=== PATIENT | male | born 1940 | race Caucasian/White ===

== ENCOUNTER 2019-12-04 14:07 | Emergency (ER) | payer MEDICARE, OTHER, SELFPAY ==
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
[2019-12-04 14:10] VITALS: BP 158/82; PULSE 92; RESP 20; TEMP 37.3; O2SAT 96; BMI 28.0
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
--- NOTE | 2019-12-04 17:53 | PC.NURSE ---
Called to room to reposition patient. Attempted to help patient up. He became upset due to his waittime and would not allow staff to help him up in bed. Patient sitting on edge of bed.
[2019-12-04 18:40] VITALS: BP 168/94; PULSE 82; RESP 16; O2SAT 94
--- NOTE | 2019-12-04 19:00 | PC.NURSE ---
LEFT REGULAR ARM SLING APPLIED
== END 2019-12-04 18:45 | disposition home or self-care (01) ==
PROVIDERS: Emergency Provider Family Medicine; Family Provider Nurse Practitioner; PCP Nurse Practitioner
DX: S42.212A Unspecified displaced fracture of surgical neck of left humerus, initial encounter for closed fracture (principal); S01.81XA Laceration without foreign body of other part of head, initial encounter; S20.219A Contusion of unspecified front wall of thorax, initial encounter; Z87.891 Personal history of nicotine dependence; V89.0XXA Person injured in unspecified motor-vehicle accident, nontraffic, initial encounter
CPT/HCPCS: 12345; 70450; 71045; 71250; 72125; 73030; 73100; 99281; 99283

== ENCOUNTER → 2020-01-21 08:52 | Outpatient (BNVA) | payer MEDICARE, SELFPAY | PROVIDERS: Family Provider Nurse Practitioner; PCP Family Medicine; Visit Provider Nurse Practitioner | DX: E78.5 Hyperlipidemia, unspecified (principal); E13.9 Other specified diabetes mellitus without complications; I10 Essential (primary) hypertension | CPT/HCPCS: 80053; 80061; 83036; 84443 ==

== ENCOUNTER → 2020-04-15 08:38 | Outpatient (BNVA) | payer MEDICARE, SELFPAY | PROVIDERS: Family Provider Nurse Practitioner; PCP Family Medicine; Visit Provider Nurse Practitioner | DX: E03.8 Other specified hypothyroidism (principal); E11.65 Type 2 diabetes mellitus with hyperglycemia; E55.9 Vitamin D deficiency, unspecified | CPT/HCPCS: 80053; 80061; 82306; 83036; 84443 ==

== ENCOUNTER → 2020-06-24 09:00 | Outpatient (BNVA) | payer MEDICARE, SELFPAY | PROVIDERS: Family Provider Nurse Practitioner; PCP Family Medicine; Visit Provider Nurse Practitioner | DX: E11.65 Type 2 diabetes mellitus with hyperglycemia (principal); I10 Essential (primary) hypertension; E78.5 Hyperlipidemia, unspecified; E55.9 Vitamin D deficiency, unspecified; I25.10 Atherosclerotic heart disease of native coronary artery without angina pectoris; E03.8 Other specified hypothyroidism; F41.1 Generalized anxiety disorder; G89.4 Chronic pain syndrome; H61.23 Impacted cerumen, bilateral | CPT/HCPCS: 80053; 83036 ==

== ENCOUNTER → 2020-06-30 11:08 | Outpatient (BNVA) | payer MEDICARE, SELFPAY | PROVIDERS: Family Provider Nurse Practitioner; PCP Family Medicine; Visit Provider Nurse Practitioner | DX: E11.65 Type 2 diabetes mellitus with hyperglycemia (principal) | CPT/HCPCS: 82043 ==

== ENCOUNTER → 2020-10-10 10:21 | Outpatient (BNVA) | payer MEDICARE, SELFPAY | PROVIDERS: Family Provider Nurse Practitioner; PCP Nurse Practitioner; Visit Provider Internal Medicine Critical Care Medicine | DX: Z01.812 Encounter for preprocedural laboratory examination (principal); J96.11 Chronic respiratory failure with hypoxia | CPT/HCPCS: 87635 ==

== ENCOUNTER 2020-10-16 13:14 | Outpatient (CLI) | payer OTHER, SELFPAY ==
--- NOTE | 2020-10-16 13:46 | PFTS_ITS ---
Date of Study:10/16/20 Date of Dictation: MECHANICS: Forced vital capacity (FVC) is mildly reduced. Forced expiratory volume in one second (FEV1) is normal. FEV1/FVC is normal. FLOW VOLUME LOOP: Narrow. LUNG VOLUMES: Total lung capacity (TLC) is reduced. Residual volume (RV) is reduced. DIFFUSING CAPACITY FOR CARBON MONOXIDE: Severely reduced. Has not been corrected for the patient's hemoglobin. INTERPRETATION: The prebronchodilator spirometry is consistent with mild restriction. Lung volumes are consistent with restrictive lung disease. Gas exchange (DLCO) is severely reduced. MTDD
== END 2020-10-16 13:15 | disposition home or self-care (01) ==
LOC: RT 13:15
PROVIDERS: PCP Nurse Practitioner; Visit Provider Internal Medicine Critical Care Medicine
DX: J44.9 Chronic obstructive pulmonary disease, unspecified (principal)
CPT/HCPCS: 94010; 94618; 94726; 94729

== ENCOUNTER → 2021-02-03 09:13 | Outpatient (BNVA) | payer MEDICARE, SELFPAY | PROVIDERS: PCP Nurse Practitioner; Visit Provider Nurse Practitioner | DX: E11.65 Type 2 diabetes mellitus with hyperglycemia (principal); E03.8 Other specified hypothyroidism; I10 Essential (primary) hypertension; E78.5 Hyperlipidemia, unspecified; I25.10 Atherosclerotic heart disease of native coronary artery without angina pectoris; F41.1 Generalized anxiety disorder; J84.10 Pulmonary fibrosis, unspecified; Z72.0 Tobacco use; J44.9 Chronic obstructive pulmonary disease, unspecified; G89.4 Chronic pain syndrome; E55.9 Vitamin D deficiency, unspecified | CPT/HCPCS: 80053; 80061; 83036; 84443; 85025 ==

== ENCOUNTER 2021-04-21 14:55 | Emergency (ER) | payer OTHER, SELFPAY ==
[2021-04-21 14:58] VITALS: BP 129/64; PULSE 70; RESP 12; TEMP 36.7; O2SAT 95; BMI 27.8
[2021-04-21 15:04] VITALS: BP 115/63; PULSE 76; O2SAT 95
--- NOTE | 2021-04-21 15:13 | XRR_ITS ---
PROCEDURE INFORMATION: Exam: XR Chest Exam date and time: 04/21/2021 3:13 PM Age: 80 years old Clinical indication: Pain; Angina pectoris; Additional info: Chest pain TECHNIQUE: Imaging protocol: XR of the chest. Views: 1 view. COMPARISON: CT chest w con* [id number] 01/22/2020 12:57 PM FINDINGS: Lungs: Hyperinflated lungs. Peripheral scarring throughout the lungs again noted and not significantly changed from prior studies. No focal consolidation. Pleural spaces: Unremarkable. No pleural effusion. No pneumothorax. Heart/Mediastinum: Unremarkable. No cardiomegaly. Bones/joints: The visualized osseous structures are intact. XR/XR chest 1V portable [id number] IMPRESSION: Stable exam, no acute findings.
--- NOTE | 2021-04-21 15:13 | ECG_ITS ---
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
[2021-04-21 15:43] LABS: Basophils # 0.1 10^3/uL (0.0-0.1); Basophils % 0.4 %; Eosinophils # 0.3 10^3/uL (0.0-0.8); Eosinophils % 2.9 %; Hematocrit 38.8 % (42.0-52.0); Hemoglobin 12.9 g/dL (11.7-16.6); Lymphocytes # 2.4 10^3/uL (0.8-4.8); Lymphocytes % 21.3 %; Mean Corpuscular HGB Conc 33.2 g/dL (30.0-36.0); Mean Corpuscular Hemoglobin 30.1 pg (28.0-34.0); Mean Corpuscular Volume 90.4 fL (80-94); Mean Platelet Volume 10.2 fL (7.4-10.4); Monocytes # 0.8 10^3/uL (0.2-0.9); Monocytes % 7.1 %; Neutrophils # 7.66 10^3/uL (1.8-7.7); Neutrophils % 67.9 %; Nucleated Red Blood Cells % 0 %; Platelet Count 198 10^3/cmm (130-400); Red Blood Count 4.29 10^6/uL (4.1-5.3); Red Cell Distribution Width 13.9 % (12.1-15.1); White Blood Count 11.3 10^3/uL (4.0-10.0)
[2021-04-21 15:55] VITALS: BP 105/56; PULSE 73; RESP 20; O2SAT 94
--- NOTE | 2021-04-21 16:04 | W.ED.CHESTPA ---
Documented by User: Jett Rider DO 04/23/21 07:11 HPI - Chest Pain General: Chief Complaint: Chest Pain Stated Complaint: CHEST PAIN Time Seen by Provider: 04/21/21 15:13 History of Present Illness: HPI narrative: 80-year-old male presents to the emergency room with complaints of chest pain and shortness of breath near syncopal episode that began shortly after he had eaten at a local restaurant he was on the way home he never made out of the car. He has had other minor episodes where he felt like he was in a pass out but they are never associated with chest pain. EMS gave him 4 aspirin and one sublingual nitro. He states he no longer has any chest pain. He has a history of coronary artery disease previous had angiogram with stenting it was about 3 years ago was done at our facility. He is not currently having any chest pain. He did not have any shortness of breath or radiation of the discomfort in his chest or diaphoresis with that episode. MD complaint: chest pain and chest heaviness Pertinent past history: coronary artery disease Onset (ago): minute(s) Timing of current episode: episodic Onset: during rest Pain location: substernal and left chest Pain radiation: none Severity: moderate Quality: tightness and heaviness Relieving factors: nitroglycerin Exacerbating factors: nothing Associated symptoms: Reports diaphoresis and dyspnea; Deny abdominal pain, fever(s), leg edema, palpitations, sense of impending doom, syncope or vomiting Treatment prior to arrival: aspirin and nitroglycerin Review of Systems Const: Reports: diaphoresis; Denies: fever(s) ENMT: Denies: throat pain, ear or mastoid pain, nasal discharge or nasal congestion Card: Denies: palpitations or syncope Resp: Reports: dyspnea GI: Denies: abdominal pain or vomiting : Denies: flank pain, dysuria, urinary frequency or urinary urgency Skin/Breast: Denies: rash or pruritus PFSH ED PFSH: Medical History Adult onset hypothyroidism CAD (coronary artery disease) Chronic pain syndrome Controlled diabetes mellitus with hyperglycemia, without long-term current use of insulin COPD (chronic obstructive pulmonary disease) Dyslipidemia Generalized anxiety disorder Hypertension Sleep apnea TIA (transient ischemic attack) Tobacco abuse Vitamin D deficiency Surgical History History of appendectomy History of cardiac catheterization with stents History of cholecystectomy History of lower leg fracture Social History Smoking and tobacco status: current every day smoker cigarettes Years cigarettes smoked: 70 [ Other cigarette details: Hx of 3PPD x 10 Year ] Second hand smoke exposure: Yes Smoking risk assessment/counseling performed?: Yes Alcohol intake: never Desire information about alcohol rehabilitation?: No Counseling given: No Desire information about substance/drug rehabilitation?: No Counseling given: No Caregiver/support person: No Lives independently: Yes Household members: spouse Housing: House Marital status: service: Yes branch: [employer] Current occupational status: retired History of recent travel: No Current gender identity: Male Physical Exam Const: COMMON NORMALS: no acute distress GENERAL APPEARANCE: cooperative and comfortable ORIENTATION/CONSCIOUSNESS: Yes awake, Yes oriented to person, Yes oriented to place and Yes oriented to time HENMT: COMMON NORMALS: normocephalic, atraumatic and hearing grossly normal bilaterally HEAD & SCALP: normocephalic and atraumatic Neck/C-Spine: COMMON NORMALS: no JVD Resp: COMMON NORMALS: normal respiratory effort, No retractions, No use of accessory muscles and clear to auscultation bilaterally AUSCULTATION: clear to auscultation bilaterally Cardio: COMMON NORMALS: no JVD, regular rate, regular rhythm and No murmurs present (Cardio) RATE: regular rate RHYTHM: regular rhythm GI: COMMON NORMALS: Soft to palpation and No hepatosplenomegaly present AUSCULTATION: Yes normoactive bowel sounds PALPATION: Yes Soft to palpation, No Tenderness to palpation present (GI), No Guarding due to palpation present (GI) and Yes No hepatosplenomegaly present Extremity: COMMON NORMALS: normal to inspection, capillary refill normal, no clubbing, cyanosis or edema, no calf tenderness and no pedal edema Neuro: SENSORIUM/ORIENTATION: Yes oriented to person, Yes oriented to place and Yes oriented to time Skin: COMMON NORMALS: no rashes or lesions noted GENERAL SKIN EXAM: no rashes or lesions noted Course Vital Signs: Vital signs: Vital Signs Temperature 98.0 F 04/21/21 20:47 Pulse Rate 55 L 04/21/21 20:47 Respiratory Rate 16 08/03/21 20:47 Blood Pressure 132/62 04/21/21 20:47 Pulse Oximetry 98 04/21/21 20:47 MDM - Chest Pain MDM Narrative: Medical decision making narrative: Patient seen initially labs ordered reviewed chart care turned over to Dr. Osborne at change of shift see his note for final diagnosis and disposition. Lab Data: Labs: Lab Results 04/21/21 04/21/21 04/21/21 Range/Units 15:30 15:30 15:30 WBC 11.3 H (4.0-10.0) 10^3/ uL RBC 4.29 (4.1-5.3) 10^6/u L Hgb 12.9 (11.7-16.6) g/dL Hct 38.8 L (42.0-52.0) % MCV 90.4 (80-94) fL MCH 30.1 (28.0-34.0) pg MCHC 33.2 (30.0-36.0) g/dL RDW 13.9 (12.1-15.1) % Plt Count 198 (130-400) 10^3/c mm MPV 10.2 (7.4-10.4) fL Neut % (Auto) 67.9 % Lymph % (Auto) 21.3 % [place] % (Auto) 7.1 % Eos % (Auto) 2.9 % Baso % (Auto) 0.4 % Neut # (Auto) 7.66 (1.8-7.7) 10^3/u L Lymph # (Auto) 2.4 (0.8-4.8) 10^3/u L Valencia # (Auto) 0.8 (0.2-0.9) 10^3/u L Eos # (Auto) 0.3 (0.0-0.8) 10^3/u L Baso # (Auto) 0.1 (0.0-0.1) 10^3/u L Nucleated RBC % (a uto) 0 % Nucleated RBCs # 0.0 /100WBC Sodium 141 (136-145) mmol/L Potassium 4.9 (3.5-5.1) mmol/L Chloride 105 (98-107) mmol/L Carbon Dioxide 25 (22-29) mmol/L Anion Gap 15.9 (5-19) BUN 25 H (8-23) mg/dL Creatinine 1.4 H (0.7-1.2) mg/dL GFR Calculation Not Reportable Glucose 150 H (65-115) mg/dL Calculated Osmolal ity 299 H (285-295) mOsm/k g Calcium 8.6 (8.5-10.5) mg/dL Total Bilirubin 0.2 (0.15-1.2) mg/dL AST 14 (0-40) U/L ALT 12 (0-41) U/L Alkaline Phosphata se 107 (40-130) IU/L Troponin T Baselin e 14 (0-15) ng/L Troponin T 120 Min [place] (0-15) ng/L Delta Troponin T (0-10) ABS# Total Protein 6.2 L (6.6-8.7) g/dL Albumin 3.5 (3.5-5.2) g/dL Globulin 2.7 (1.3-4.6) g/dL 04/21/21 Range/Units 17:44 WBC (4.0-10.0) 10^3/ uL RBC (4.1-5.3) 10^6/u L Hgb (11.7-16.6) g/dL Hct (42.0-52.0) % MCV (80-94) fL MCH (28.0-34.0) pg MCHC (30.0-36.0) g/dL RDW (12.1-15.1) % Plt Count (130-400) 10^3/c mm MPV (7.4-10.4) fL Neut % (Auto) % Lymph % (Auto) % Valencia % (Auto) % Eos % (Auto) % Baso % (Auto) % Neut # (Auto) (1.8-7.7) 10^3/u L Lymph # (Auto) (0.8-4.8) 10^3/u L Valencia # (Auto) (0.2-0.9) 10^3/u L Eos # (Auto) (0.0-0.8) 10^3/u L Baso # (Auto) (0.0-0.1) 10^3/u L Nucleated RBC % (a uto) % Nucleated RBCs # /100WBC Sodium (136-145) mmol/L Potassium (3.5-5.1) mmol/L Chloride (98-107) mmol/L Carbon Dioxide (22-29) mmol/L Anion Gap (5-19) BUN (8-23) mg/dL Creatinine (0.7-1.2) mg/dL GFR Calculation Glucose (65-115) mg/dL Calculated Osmolal ity (285-295) mOsm/k g Calcium (8.5-10.5) mg/dL Total Bilirubin (0.15-1.2) mg/dL AST (0-40) U/L ALT (0-41) U/L Alkaline Phosphata se (40-130) IU/L Troponin T Baselin e (0-15) ng/L Troponin T 120 Min [place] 12.74 (0-15) ng/L Delta Troponin T -1.26 L (0-10) ABS# Total Protein (6.6-8.7) g/dL Albumin (3.5-5.2) g/dL Globulin (1.3-4.6) g/dL Discharge Plan Discharge Patient Disposition: Home Clinical Impression: Chest pain Qualifiers: Chest pain type: unspecified Qualified Code(s): R07.9 - Chest pain, unspecified Condition: Stable Prescriptions: No Action (DME) OneTouch Ultra Blue Test Strip Strip See Rx Instructions .ROUTE .MEDSUPPLY Qty: 100 RF: 3 (DME) lancets [OneTouch UltraSoft Lancets] Misc See Rx Instructions .ROUTE .MEDSUPPLY Qty: 100 RF: 3 isosorbide mononitrate 60 mg tablet extended release 24 hr 60 mg PO QAM RF: 0 glipizide 10 mg tablet 10 mg PO BID Qty: 180 RF: 1 metformin 1,000 mg tablet 1,000 mg PO BID Qty: 180 RF: 1 albuterol sulfate [ProAir HFA] 90 mcg/actuation HFA aerosol inhaler 2 puff inhalation Q6H PRN (Reason: shortness of breath or wheezing) Qty: 25.8 RF: 1 tramadol 50 mg tablet 75 mg PO BID PRN (Reason: pain) Qty: 270 RF: 1 multivitamin with minerals [One-A-Day Maximum Formula] Tablet 1 tab PO QPM RF: 0 Aspir-81 81 mg Tablet,Delayed Release (Dr/Ec) 81 mg PO QPM RF: 0 Levemir FlexTouch U-100 Insuln 100 unit/mL (3 mL) insulin pen 50 unit SUBCUT BEDTIME RF: 0 atorvastatin 80 mg tablet 80 mg PO QPM RF: 0 lisinopril 20 mg tablet 20 mg PO QPM RF: 0 clopidogrel 75 mg tablet 75 mg PO QAM RF: 0 levothyroxine 100 mcg tablet 100 mcg PO QAM RF: 0 metoprolol succinate 25 mg tablet extended release 24 hr 25 mg PO QAM RF: 0 sertraline 50 mg tablet 50 mg PO QAM RF: 0 Chantix 1 mg tablet 1 mg PO BID RF: 0 cholecalciferol (vitamin D3) 1,250 mcg (50,000 unit) tablet 50,000 unit PO Q30D RF: 0 Discharge Orders: Discharge ED (Routine); Ordered 04/21/21 Ordered By: Emily Osborne Referrals: Radha Ocampo, [facility] [Primary Care Provider] - 1-3 days Discharge Diet: Advance as tolerated Discharge Activity: Resume usual activity Patient Instructions: Chest Pain (ED) Coding Level of Care Code ED Auto Seat Cover Installer for Chg Fwd Documented by User: Emily Osborne MD 04/21/21 20:18 HPI - Chest Pain General: Chief Complaint: Chest Pain Stated Complaint: CHEST PAIN Time Seen by Provider: 04/21/21 15:13 [facility] ED PFSH: Medical History Adult onset hypothyroidism CAD (coronary artery disease) Chronic pain syndrome Controlled diabetes mellitus with hyperglycemia, without long-term current use of insulin COPD (chronic obstructive pulmonary disease) Dyslipidemia Generalized anxiety disorder Hypertension Sleep apnea TIA (transient ischemic attack) Tobacco abuse Vitamin D deficiency Surgical History History of appendectomy History of cardiac catheterization with stents History of cholecystectomy History of lower leg fracture Social History Smoking and tobacco status: current every day smoker cigarettes Years cigarettes smoked: 70 [ Other cigarette details: Hx of 3PPD x 10 Year ] Second hand smoke exposure: Yes Smoking risk assessment/counseling performed?: Yes Alcohol intake: never Desire information about alcohol rehabilitation?: No Counseling given: No Desire information about substance/drug rehabilitation?: No Counseling given: No Caregiver/support person: No Lives independently: Yes Household members: spouse Housing: House Marital status: service: Yes branch: [employer] Current occupational status: retired History of recent travel: No Current gender identity: Male Course Vital Signs: Vital signs: Vital Signs Temperature 98.0 F 04/21/21 20:47 Pulse Rate 55 L 04/21/21 20:47 Respiratory Rate 16 04/21/21 20:47 Blood Pressure 132/62 04/21/21 20:47 Pulse Oximetry 98 04/21/21 20:47 MDM - Chest Pain MDM Narrative: Medical decision making narrative: Patient presents here with chest pain that is been resolved here. His initial repeat troponins here are negative. He has no signs of acute coronary syndrome. He is stable for discharge and is to follow-up with PCP and return if worsening. Lab Data: Labs: Lab Results 04/21/21 04/21/21 04/21/21 Range/Units 15:30 15:30 15:30 WBC 11.3 H (4.0-10.0) 10^3/ uL RBC 4.29 (4.1-5.3) 10^6/u L Hgb 12.9 (11.7-16.6) g/dL Hct 38.8 L (42.0-52.0) % MCV 90.4 (80-94) fL MCH 30.1 (28.0-34.0) pg MCHC 33.2 (30.0-36.0) g/dL RDW 13.9 (12.1-15.1) % Plt Count 198 (130-400) 10^3/c mm MPV 10.2 (7.4-10.4) fL Neut % (Auto) 67.9 % Lymph % (Auto) 21.3 % Valencia % (Auto) 7.1 % Eos % (Auto) 2.9 % Baso % (Auto) 0.4 % Neut # (Auto) 7.66 (1.8-7.7) 10^3/u L Lymph # (Auto) 2.4 (0.8-4.8) 10^3/u L Valencia # (Auto) 0.8 (0.2-0.9) 10^3/u L Eos # (Auto) 0.3 (0.0-0.8) 10^3/u L Baso # (Auto) 0.1 (0.0-0.1) 10^3/u L Nucleated RBC % (a uto) 0 % Nucleated RBCs # 0.0 /100WBC Sodium 141 (136-145) mmol/L Potassium 4.9 (3.5-5.1) mmol/L Chloride 105 (98-107) mmol/L Carbon Dioxide 25 (22-29) mmol/L Anion Gap 15.9 (5-19) BUN 25 H (8-23) mg/dL Creatinine 1.4 H (0.7-1.2) mg/dL GFR Calculation Not Reportable Glucose 150 H (65-115) mg/dL Calculated Osmolal ity 299 H (285-295) mOsm/k g Calcium 8.6 (8.5-10.5) mg/dL Total Bilirubin 0.2 (0.15-1.2) mg/dL AST 14 (0-40) U/L ALT 12 (0-41) U/L Alkaline Phosphata se 107 (40-130) IU/L Troponin T Baselin e 14 (0-15) ng/L Troponin T 120 Min [place] (0-15) ng/L Delta Troponin T (0-10) ABS# Total Protein 6.2 L (6.6-8.7) g/dL Albumin 3.5 (3.5-5.2) g/dL Globulin 2.7 (1.3-4.6) g/dL 04/21/21 Range/Units 17:44 WBC (4.0-10.0) 10^3/ uL RBC (4.1-5.3) 10^6/u L Hgb (11.7-16.6) g/dL Hct (42.0-52.0) % MCV (80-94) fL MCH (28.0-34.0) pg MCHC (30.0-36.0) g/dL RDW (12.1-15.1) % Plt Count (130-400) 10^3/c mm MPV (7.4-10.4) fL Neut % (Auto) % Lymph % (Auto) % Valencia % (Auto) % Eos % (Auto) % Baso % (Auto) % Neut # (Auto) (1.8-7.7) 10^3/u L Lymph # (Auto) (0.8-4.8) 10^3/u L Valencia # (Auto) (0.2-0.9) 10^3/u L Eos # (Auto) (0.0-0.8) 10^3/u L Baso # (Auto) (0.0-0.1) 10^3/u L Nucleated RBC % (a uto) % Nucleated RBCs # /100WBC Sodium (136-145) mmol/L Potassium (3.5-5.1) mmol/L Chloride (98-107) mmol/L Carbon Dioxide (22-29) mmol/L Anion Gap (5-19) BUN (8-23) mg/dL Creatinine (0.7-1.2) mg/dL GFR Calculation Glucose (65-115) mg/dL Calculated Osmolal ity (285-295) mOsm/k g Calcium (8.5-10.5) mg/dL Total Bilirubin (0.15-1.2) mg/dL AST (0-40) U/L ALT (0-41) U/L Alkaline Phosphata se (40-130) IU/L Troponin T Baselin e (0-15) ng/L Troponin T 120 Min [place] 12.74 (0-15) ng/L Delta Troponin T -1.26 L (0-10) ABS# Total Protein (6.6-8.7) g/dL Albumin (3.5-5.2) g/dL Globulin (1.3-4.6) g/dL Imaging Data^: CXR: Attestation: I personally reviewed and interpreted this imaging study as follows: Radiologist's impression: [address] [address] XRay Report Signed Patient: Ervin Sandoval Unit #: [id number] : 1940 Age/Sex: 80 / M ADM Date: 04/21/21 Loc: ER Room/Bed: Attending Dr: Ordering Provider/Ordering MD: Jett Rider DO Date of Service: 04/21/21 Procedure(s): XR chest 1V portable [id number] Accession Number(s): [id number] Report Number: [id number] PROCEDURE INFORMATION: Exam: XR Chest Exam date and time: 04/21/2021 3:13 PM Age: 80 years old Clinical indication: Pain; Angina pectoris; Additional info: Chest pain TECHNIQUE: Imaging protocol: XR of the chest. Views: 1 view. COMPARISON: CT chest w con* [id number] 01/22/2020 12:57 PM FINDINGS: Lungs: Hyperinflated lungs. Peripheral scarring throughout the lungs again noted and not significantly changed from prior studies. No focal consolidation. Pleural spaces: Unremarkable. No pleural effusion. No pneumothorax. Heart/Mediastinum: Unremarkable. No cardiomegaly. Bones/joints: The visualized osseous structures are intact. XR/XR chest 1V portable [id number] IMPRESSION: Stable exam, no acute findings. Dictated By: Isaac Gordillo DO Signed By: Isaac Gordillo DO Signed Date/Time: 04/21/211550 DD/ 155 Discharge Plan Discharge Patient Disposition: Home Clinical Impression: Chest pain Qualifiers: Chest pain type: unspecified Qualified Code(s): R07.9 - Chest pain, unspecified Condition: Stable Prescriptions: No Action (DME) OneTouch Ultra Blue Test Strip Strip See Rx Instructions .ROUTE .MEDSUPPLY Qty: 100 RF: 3 (DME) lancets [OneTouch UltraSoft Lancets] Misc See Rx Instructions .ROUTE .MEDSUPPLY Qty: 100 RF: 3 isosorbide mononitrate 60 mg tablet extended release 24 hr 60 mg PO QAM RF: 0 glipizide 10 mg tablet 10 mg PO BID Qty: 180 RF: 1 metformin 1,000 mg tablet 1,000 mg PO BID Qty: 180 RF: 1 albuterol sulfate [ProAir HFA] 90 mcg/actuation HFA aerosol inhaler 2 puff inhalation Q6H PRN (Reason: shortness of breath or wheezing) Qty: 25.8 RF: 1 tramadol 50 mg tablet 75 mg PO BID PRN (Reason: pain) Qty: 270 RF: 1 multivitamin with minerals [One-A-Day Maximum Formula] Tablet 1 tab PO QPM RF: 0 Aspir-81 81 mg Tablet,Delayed Release (Dr/Ec) 81 mg PO QPM RF: 0 Levemir FlexTouch U-100 Insuln 100 unit/mL (3 mL) insulin pen 50 unit SUBCUT BEDTIME RF: 0 atorvastatin 80 mg tablet 80 mg PO QPM RF: 0 lisinopril 20 mg tablet 20 mg PO QPM RF: 0 clopidogrel 75 mg tablet 75 mg PO QAM RF: 0 levothyroxine 100 mcg tablet 100 mcg PO QAM RF: 0 metoprolol succinate 25 mg tablet extended release 24 hr 25 mg PO QAM RF: 0 sertraline 50 mg tablet 50 mg PO QAM RF: 0 Chantix 1 mg tablet 1 mg PO BID RF: 0 cholecalciferol (vitamin D3) 1,250 mcg (50,000 unit) tablet 50,000 unit PO Q30D RF: 0 Discharge Orders: Discharge ED (Routine); Ordered 04/21/21 Ordered By: Emily Osborne Referrals: Radha Ocampo FNP-C [Primary Care Provider] - 1-3 days Discharge Diet: Advance as tolerated Discharge Activity: Resume usual activity Patient Instructions: Chest Pain (ED) Coding Level of Care Code ED Auto Seat Cover Installer for Bal [place]
[2021-04-21 16:07] LABS: Alanine Aminotransferase 12 U/L (0-41); Albumin Level 3.5 g/dL (3.5-5.2); Alkaline Phosphatase 107 IU/L (40-130); Anion Gap 15.9 (5-19); Aspartate Amino Transferase 14 U/L (0-40); Blood Urea Nitrogen 25 mg/dL (8-23); Calcium 8.6 mg/dL (8.5-10.5); Carbon Dioxide 25 mmol/L (22-29); Chloride 105 mmol/L (98-107); Globulin 2.7 g/dL (1.3-4.6); Glucose 150 mg/dL (65-115); Osmolality Calculated 299 mOsm/kg (285-295); Potassium 4.9 mmol/L (3.5-5.1); Sodium 141 mmol/L (136-145); Total Bilirubin 0.2 mg/dL (0.15-1.2); Total Protein 6.2 g/dL (6.6-8.7)
[2021-04-21 16:18] LABS: Troponin(5th) Baseline 14 ng/L (0-15)
[2021-04-21 17:05] VITALS: BP 128/69; PULSE 67; RESP 19; O2SAT 94
--- NOTE | 2021-04-21 17:13 | ECG_ITS ---
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: : 1940 Requested By: Jett Bowling Order Number: [id number] Reading MD: ANIKA MARLEY Measurements Intervals [place] Rate: 73 P: WA: QRS: -28 QRSD: 95 T: 52 QT: 372 QTc: 411 Interpretive Statements SUPRAVENTRICULAR RHYTHM BORDERLINE LEFT AXIS DEVIATION [QRS AXIS < -20] Compared to ECG 03/16/2017 17:58:17 Supraventricular rhythm now present Sinus rhythm no longer present Electronically Signed On 04-21-2021 22:33:19 CDT by ANIKA MARLEY [id number]
[2021-04-21 18:00] VITALS: BP 119/64; PULSE 62; O2SAT 93
[2021-04-21 18:41] LABS: Troponin 5 2HR 12.74 ng/L (0-15)
[2021-04-21 18:45] LABS: Troponin 5 2HR Delta -1.26 ABS# (0-10)
--- NOTE | 2021-04-21 19:22 | PC.NURSE ---
Report from [place]
--- NOTE | 2021-04-21 19:35 | PC.NURSE ---
Pt refused pain and nausea meds. notified.
[2021-04-21 20:47] VITALS: BP 132/62; PULSE 55; RESP 16; TEMP 36.7; O2SAT 98
== END 2021-04-21 20:49 | disposition home or self-care (01) ==
PROVIDERS: Family Medicine; Emergency Provider Emergency Medicine; PCP Nurse Practitioner
DX: R07.9 Chest pain, unspecified (principal); Z79.02 Long term (current) use of antithrombotics/antiplatelets; Z79.82 Long term (current) use of aspirin; Z79.4 Long term (current) use of insulin; I25.10 Atherosclerotic heart disease of native coronary artery without angina pectoris; E11.9 Type 2 diabetes mellitus without complications; J44.9 Chronic obstructive pulmonary disease, unspecified; E78.5 Hyperlipidemia, unspecified; I10 Essential (primary) hypertension; Z86.73 Personal history of transient ischemic attack (TIA), and cerebral infarction without residual deficits; F17.210 Nicotine dependence, cigarettes, uncomplicated
CPT/HCPCS: 71045; 80053; 84484; 85025; 93005; 99283; J2270; J2405

== ENCOUNTER → 2021-06-23 10:15 | Outpatient (BNVA) | payer OTHER, SELFPAY | PROVIDERS: PCP Nurse Practitioner; Visit Provider Nurse Practitioner | DX: E11.65 Type 2 diabetes mellitus with hyperglycemia (principal); E03.8 Other specified hypothyroidism; G45.9 Transient cerebral ischemic attack, unspecified; I10 Essential (primary) hypertension; J84.10 Pulmonary fibrosis, unspecified; E55.9 Vitamin D deficiency, unspecified; I25.10 Atherosclerotic heart disease of native coronary artery without angina pectoris; F41.1 Generalized anxiety disorder; G89.4 Chronic pain syndrome; Z79.4 Long term (current) use of insulin | CPT/HCPCS: 80053; 80061; 82043; 83036; 84443 ==

== ENCOUNTER 2022-01-06 06:00 | Outpatient (RCR) | payer OTHER, SELFPAY | END 2022-01-16 23:59 | disposition home or self-care (01) | LOC: TPT 06:00 | PROVIDERS: PCP Nurse Practitioner; Referring Provider Family Medicine; Visit Provider Family Medicine | DX: M54.89 Other dorsalgia (principal) | CPT/HCPCS: 97110; 97163 ==

== ENCOUNTER → 2022-01-15 08:02 | Outpatient (BNVA) | payer MEDICARE, SELFPAY | PROVIDERS: PCP Nurse Practitioner; Visit Provider Nurse Practitioner | DX: E11.65 Type 2 diabetes mellitus with hyperglycemia (principal); Z79.4 Long term (current) use of insulin; G45.9 Transient cerebral ischemic attack, unspecified; I25.10 Atherosclerotic heart disease of native coronary artery without angina pectoris; E55.9 Vitamin D deficiency, unspecified; I10 Essential (primary) hypertension; E03.8 Other specified hypothyroidism; F41.1 Generalized anxiety disorder; G89.4 Chronic pain syndrome | CPT/HCPCS: 80053; 80061; 81000; 82043; 82306; 83036; 84443; 85025 ==

== ENCOUNTER → 2022-01-28 14:40 | Outpatient (BNVA) | payer OTHER, SELFPAY | PROVIDERS: PCP Nurse Practitioner; Visit Provider Internal Medicine | DX: I25.10 Atherosclerotic heart disease of native coronary artery without angina pectoris (principal); I10 Essential (primary) hypertension; E11.65 Type 2 diabetes mellitus with hyperglycemia; E78.5 Hyperlipidemia, unspecified; G47.30 Sleep apnea, unspecified; J44.9 Chronic obstructive pulmonary disease, unspecified; F17.210 Nicotine dependence, cigarettes, uncomplicated; Z79.84 Long term (current) use of oral hypoglycemic drugs; Z79.4 Long term (current) use of insulin | CPT/HCPCS: 99213; 99214 ==

== ENCOUNTER 2022-02-17 06:00 | Outpatient (RCR) | payer OTHER, SELFPAY | END 2022-03-02 23:59 | disposition home or self-care (01) | LOC: TPT 06:00 | PROVIDERS: PCP Nurse Practitioner; Referring Provider Family Medicine; Visit Provider Family Medicine | DX: M54.59 Other low back pain (principal) | CPT/HCPCS: 97110; 97164 ==

== ENCOUNTER → 2022-04-13 14:27 | Outpatient (BNVA) | payer MEDICARE, SELFPAY | PROVIDERS: PCP Nurse Practitioner; Visit Provider Nurse Practitioner | DX: E11.65 Type 2 diabetes mellitus with hyperglycemia (principal); Z79.4 Long term (current) use of insulin; E55.9 Vitamin D deficiency, unspecified; I10 Essential (primary) hypertension; E03.8 Other specified hypothyroidism | CPT/HCPCS: 80053; 80061; 82306; 82607; 83036; 84443; 85025 ==

== ENCOUNTER → 2022-06-07 11:41 | Outpatient (BNVA) | payer MEDICARE, SELFPAY | PROVIDERS: PCP Nurse Practitioner; Visit Provider Nurse Practitioner Family | DX: R10.9 Unspecified abdominal pain (principal); K59.00 Constipation, unspecified; R19.7 Diarrhea, unspecified; Z20.822 Contact with and (suspected) exposure to COVID-19 | CPT/HCPCS: 74018; 87426 ==

== ENCOUNTER 2022-06-11 22:20 | Observation (INO) | payer MEDICARE, OTHER, SELFPAY ==
--- NOTE | 2022-06-11 22:21 | XRR_ITS ---
PROCEDURE INFORMATION: Exam: XR Chest Exam date and time: 06/11/2022 11:22 PM Age: 81 years old Clinical indication: Chest pressure; Prior surgery; Surgery type: Gb. Cardiac stents; Patient HX: C/O chest pain. History of mi. ; Additional info: SOB TECHNIQUE: Imaging protocol: Radiologic exam of the chest. Views: 1 view. COMPARISON: CR XR chest 1V portable [id number] 04/21/2021 3:13 PM FINDINGS: Lungs: Bilateral diffuse largely peripheral interstitial fibrotic changes similar to prior exam with left peripheral to lower lobe suspected pleuroparenchymal scarring. Pleural spaces: Unremarkable. No pleural effusion. No pneumothorax. Heart/Mediastinum: Unremarkable. No cardiomegaly. Bones/joints: Unremarkable. XR/XR chest 1V portable [id number] IMPRESSION: Bilateral diffuse largely peripheral interstitial fibrotic changes similar to prior exam with left peripheral to lower lobe suspected pleuroparenchymal scarring.
[2022-06-11 22:28] VITALS: BP 148/81; PULSE 91; RESP 18; TEMP 36.9; O2SAT 93; BMI 28.2
--- NOTE | 2022-06-11 22:36 | ECG_ITS ---
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 Measurements Intervals [place] Rate: 68 P: 68 WA: 206 QRS: 7 QRSD: 98 T: 45 QT: 381 QTc: 405 Interpretive Statements SINUS RHYTHM SEPTAL MYOCARDIAL INFARCTION , PROBABLY OLD [40+ ms Q WAVE IN V1/V2] Compared to ECG 06/11/2022 22:40:14 Myocardial infarct finding now present Electronically Signed On 06-12-2022 18:10:51 CDT by Elroy Ashford M.D. [id number]
--- NOTE | 2022-06-11 22:57 | W.ED.CHESTPA ---
HPI - Chest Pain General: Chief Complaint: Chest Pain Stated Complaint: cp, sob Time Seen by Provider: 06/11/22 22:22 Source: patient Mode of arrival: ambulatory Limitations: no limitations History of Present Illness: 81-year-old male has extensive cardiac disease states that 2 days ago he is having some reflux and burning pain in his abdomen he states this moved to his chest and having some burning sensation in his chest today denies any shortness of breath states it radiates to his back at times states pain currently is a 5 out of 10. Denies any fevers denies any vomiting or diarrhea. Associated symptoms: Reports abdominal pain and dyspnea; Deny fever(s) Review of Systems Const: Denies: fever(s), chills, body aches or change in appetite Eyes: Denies: blurry vision or eye discomfort ENMT: Denies: throat pain or dental pain Card: Reports: chest pain Resp: Reports: dyspnea GI: Reports: abdominal pain : Denies: dysuria Musc: Denies: neck pain or back pain Skin/Breast: Denies: rash Neuro: Denies: headache(s) Psych: Denies: depression Dustin/Lymph: Denies: easy bruising All/Imm: Denies: urticaria PFSH ED PFSH: Medical History Adult onset hypothyroidism CAD (coronary artery disease) Chronic pain syndrome COPD (chronic obstructive pulmonary disease) 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 Diabetes mellitus with hyperglycemia, with long-term current use of insulin Dyslipidemia Generalized anxiety disorder Hypertension Sleep apnea TIA (transient ischemic attack) Tobacco abuse Vitamin D deficiency Surgical History History of appendectomy History of cardiac catheterization with stents History of cholecystectomy History of lower leg fracture Social History Smoking and tobacco status: current every day smoker cigarettes Years cigarettes smoked: 70 [ Other cigarette details: Hx of 3PPD x 10 Year] Second hand smoke exposure: Yes Smoking risk assessment/counseling performed?: Yes Alcohol intake: never Desire information about alcohol rehabilitation?: No Counseling given: No Desire information about substance/drug rehabilitation?: No Counseling given: No Caregiver/support person: No Lives independently: Yes Household members: spouse Housing: House Marital status: service: Yes branch: [employer] Current occupational status: retired History of recent travel: No Current gender identity: Male Physical Exam Const: COMMON NORMALS: no acute distress, patient oriented x3 and healthy appearing HENMT: COMMON NORMALS: normocephalic and atraumatic HEAD & SCALP: normocephalic and atraumatic Eye: COMMON NORMALS: Equal, round and reactive pupils present and EOMs intact bilaterally PUPIL: Yes Equal, round and reactive pupils present Neck/C-Spine: COMMON NORMALS: full ROM and supple Chest: COMMONS NORMALS: normal inspection of the chest and normal palpation of entire chest wall Resp: COMMON NORMALS: normal respiratory effort, No retractions, No use of accessory muscles and clear to auscultation bilaterally AUSCULTATION: clear to auscultation bilaterally Cardio: COMMON NORMALS: regular rate, regular rhythm and No murmurs present (Cardio) RATE: regular rate RHYTHM: regular rhythm GI: COMMON NORMALS: Normal to inspection, nondistended, normoactive bowel sounds present, Soft to palpation, non-tender and no masses PALPATION: Yes Soft to palpation Extremity: COMMON NORMALS: normal to inspection and full ROM Neuro: COMMON NORMALS: patient oriented x3, moves all extremities and no focal motor deficits Psych: COMMON NORMALS: mental status grossly normal, Normal thought process present and cooperative THOUGHT PROCESS: Normal thought process present Skin: COMMON NORMALS: no rashes or lesions noted and no wounds GENERAL SKIN EXAM: no rashes or lesions noted Course Vital Signs: Vital signs: Vital Signs Temperature 98.3 F 06/12/22 01:00 Pulse Rate 75 06/12/22 01:00 Respiratory Rate 23 H 06/12/22 01:00 Blood Pressure 116/82 06/12/22 01:00 Pulse Oximetry 95 06/12/22 01:00 Oxygen Delivery Me thod 06/12/22 01:00 MDM - Chest Pain Medical Decision Making Patient presents with upper abdominal pain normal chest pain he does have an elevated lipase CT scan did show some inflammation likely from a pancreatitis spoke to hospitalist and will admit at this time. Lab Data : 06/11/22 23:00 06/11/22 23:00 Radiology Impressions Chest X-Ray 06/11/22 22:21 IMPRESSION: Bilateral diffuse largely peripheral interstitial fibrotic changes similar to prior exam with left peripheral to lower lobe suspected pleuroparenchymal scarring. Abdomen/Pelvis CT 06/12/22 00:29 IMPRESSION: 1. Suspected minimal edema about the transverse duodenum, series 3, image 40, with prominent fluid in the small bowel may reflect a duodenitis and enteritis. 2. Coronary artery atherosclerotic calcifications. 3. Emphysematous changes. 4. Cholecystectomy. 5. Several calcified punctate nonobstructing renal calyceal stones. 6. Diverticulosis without diverticulitis. 7. Fusiform infrarenal abdominal aortic aneurysm measuring 3.2 cm without findings of rupture. Laboratory Results WBC 11.0 10^3/uL (4.0-10.0) H 06/11/22 23:00 RBC 4.32 10^6/uL (4.1-5.3) 06/11/22 23:00 Hgb 13.3 g/dL (11.7-16.6) 06/11/22 23:00 Hct 39.4 % (42.0-52.0) L 06/11/22 23:00 MCV 91.2 fl (80-94) 06/11/22 23:00 MCH 30.8 pg (28.0-34.0) 06/11/22 23:00 MCHC 33.8 g/dL (30.0-36.0) 06/11/22 23:00 RDW 13.5 % (12.1-15.1) 06/11/22 23:00 Plt Count 207 10^3/cmm (130-400) 06/11/22 23:00 MPV 10.4 fL (7.4-10.4) 06/11/22 23:00 Neut % (Auto) 67.9 % 06/11/22 23:00 Lymph % (Auto) 22.4 % 06/11/22 23:00 [place] % (Auto) 6.6 % 06/11/22 23:00 Eos % (Auto) 2.2 % 06/11/22 23:00 Baso % (Auto) 0.5 % 06/11/22 23:00 Neut # (Auto) 7.47 10^3/uL (1.8-7.7) 06/11/22 23:00 Lymph # (Auto) 2.5 10^3/uL (0.8-4.8) 06/11/22 23:00 [place] # (Auto) 0.7 10^3/uL (0.2-0.9) 06/11/22 23:00 Eos # (Auto) 0.2 10^3/uL (0.0-0.8) 06/11/22 23:00 Baso # (Auto) 0.1 10^3/uL (0.0-0.1) 06/11/22 23:00 Nucleated RBC % (auto) 0 % 06/11/22 23:00 Nucleated RBCs # 0.0 /100WBC 06/11/22 23:00 PT 13.00 SECONDS (12.1-14.9) 06/11/22 23:00 INR 0.95 (0.8-1.2) 06/11/22 23:00 Sodium 138 mmol/L (136-145) 06/11/22 23:00 Potassium 4.6 mmol/L (3.5-5.1) 06/11/22 23:00 Chloride 101 mmol/L (98-107) 06/11/22 23:00 Carbon Dioxide 27 mmol/L (22-29) 06/11/22 23:00 Anion Gap 14.6 (5-19) 06/11/22 23:00 BUN 33 mg/dL (8-23) H 06/11/22 23:00 Creatinine 1.2 mg/dL (0.7-1.2) 06/11/22 23:00 GFR Calculation Not Reportable 06/11/22 23:00 Glucose 259 mg/dL (65-115) H 06/11/22 23:00 Calculated Osmolality 302 mOsm/kg (285-295) H 06/11/22 23:00 Calcium 9.4 mg/dL (8.5-10.5) 06/11/22 23:00 Total Bilirubin 0.3 mg/dL (0.15-1.2) 06/11/22 23:00 AST 10 U/L (0-40) 06/11/22 23:00 ALT 9 U/L (0-41) 06/11/22 23:00 Alkaline Phosphatase 125 U/L (40-130) 06/11/22 23:00 Troponin T Baseline 13 ng/L (0-15) 06/11/22 23:00 NT-Pro-B Natriuret Pep 109 pg/mL (0-450) 06/11/22 23:00 Total Protein 7.4 g/dL (6.6-8.7) 06/11/22 23:00 Albumin 3.9 g/dL (3.5-5.2) 06/11/22 23:00 Globulin 3.5 g/dL (1.3-4.6) 06/11/22 23:00 Lipase 600 U/L (13-60) H 06/11/22 23:00 EKG Data EKG 1: I personally reviewed and interpreted this EKG as follows: EKG interpretation date: 06/11/22 EKG interpretation time: 22:40 Interpretation: nsr hr [address] or t wave abnormalities qrs 93 qtc 392 EKG 2: I personally reviewed and interpreted this EKG as follows: EKG interpretation date: 06/12/22 EKG interpretation time: 00:36 Interpretation: nsr hr [address] or t wave abnormalities qrs 98 qtc 397 Discharge Plan Discharge Patient Disposition: Admitted As Inpatient Clinical Impression: Acute pancreatitis Condition: Stable Prescriptions: No Action (DME) lancets [OneTouch UltraSoft Lancets] Misc See Rx Instructions .ROUTE .MEDSUPPLY Qty: 100 3RF Rx Instructions: daily multivitamin with minerals [One-A-Day Maximum Formula] Tablet 1 tab PO QPM cholecalciferol (vitamin D3) 1,250 mcg (50,000 unit) tablet 50,000 unit PO .monthly Qty: 3 1RF Rx Instructions: TAKES THE FIRST TUESDAY OF EACH MONTH tramadol 50 mg tablet 75 mg PO BID PRN (Reason: pain) Qty: 270 1RF (DME) OneTouch Ultra Blue Test Strip Strip See Rx Instructions .ROUTE .MEDSUPPLY Qty: 100 3RF Rx Instructions: daily (DME) blood-glucose meter [OneTouch Ultra2 Meter] Kit See Rx Instructions .Route Qty: 1 0RF Rx Instructions: use daily (DME) lancets [OneTouch Delica Plus Lancet] 33 gauge misc See Rx Instructions .Route Qty: 100 3RF Rx Instructions: use 1 day Levemir FlexTouch U-100 Insuln 100 unit/mL (3 mL) insulin pen 55 unit SUBCUT BEDTIME Qty: 15 2RF albuterol sulfate [ProAir HFA] 90 mcg/actuation HFA aerosol inhaler 2 puff inhalation Q6H PRN (Reason: shortness of breath or wheezing) Qty: 25.8 0RF lisinopril 20 mg tablet 20 mg PO QPM Qty: 90 1RF Rx Instructions: blood pressure levothyroxine 100 mcg tablet 100 mcg PO QAM Qty: 90 1RF glipizide 10 mg tablet 10 mg PO BID Qty: 180 1RF Rx Instructions: for blood sugar sertraline 50 mg tablet 50 mg PO QAM Qty: 90 1RF Rx Instructions: moods metoprolol succinate 25 mg tablet extended release 24 hr 25 mg PO QAM Qty: 90 1RF Rx Instructions: heart clopidogrel 75 mg tablet 75 mg PO QAM Qty: 90 1RF metformin 1,000 mg tablet 1,000 mg PO BID Qty: 180 1RF Rx Instructions: blood sugar atorvastatin 80 mg tablet 80 mg PO QPM Qty: 90 1RF Rx Instructions: for cholesterol isosorbide mononitrate 60 mg tablet extended release 24 hr 60 mg PO QAM Qty: 90 1RF Rx Instructions: for heart Aspir-81 81 mg Tablet,Delayed Release (Dr/Ec) 81 mg PO QPM Referrals: Radha Ocampo, REFLESHER-C [Primary Care Provider] - Coding Level of Care Code ED Health Education Coordinator for Chg Fwd Exam Comprehensive
[2022-06-11] MEDS: lidocaine 2% viscous 15 ML, aluminum-mag hydrox-simethicon 30 ML, sucralfate oral liq 1 GM PO (23:16)
[2022-06-11 23:31] LABS: Basophils # 0.1 10^3/uL (0.0-0.1); Basophils % 0.5 %; Eosinophils # 0.2 10^3/uL (0.0-0.8); Eosinophils % 2.2 %; Hematocrit 39.4 % (42.0-52.0); Hemoglobin 13.3 g/dL (11.7-16.6); Lymphocytes # 2.5 10^3/uL (0.8-4.8); Lymphocytes % 22.4 %; Mean Corpuscular HGB Conc 33.8 g/dL (30.0-36.0); Mean Corpuscular Hemoglobin 30.8 pg (28.0-34.0); Mean Corpuscular Volume 91.2 fl (80-94); Mean Platelet Volume 10.4 fL (7.4-10.4); Monocytes # 0.7 10^3/uL (0.2-0.9); Monocytes % 6.6 %; Neutrophils # 7.47 10^3/uL (1.8-7.7); Neutrophils % 67.9 %; Nucleated Red Blood Cells % 0 %; Platelet Count 207 10^3/cmm (130-400); Red Blood Count 4.32 10^6/uL (4.1-5.3); Red Cell Distribution Width 13.5 % (12.1-15.1)
[2022-06-11 23:42] LABS: INR 0.95 (0.8-1.2)
[2022-06-12] VITALS (10 sets, daily range): BP systolic 116–179; BP diastolic 55–101; PULSE 66–87; RESP 16–26; TEMP 36.4–37.2; O2SAT 92–95
[2022-06-12 00:08] LABS: Troponin(5th) Baseline 13 ng/L (0-15)
[2022-06-12 00:17] LABS: Alanine Aminotransferase 9 U/L (0-41); Albumin Level 3.9 g/dL (3.5-5.2); Alkaline Phosphatase 125 U/L (40-130); Anion Gap 14.6 (5-19); Aspartate Amino Transferase 10 U/L (0-40); Blood Urea Nitrogen 33 mg/dL (8-23); Calcium 9.4 mg/dL (8.5-10.5); Carbon Dioxide 27 mmol/L (22-29); Chloride 101 mmol/L (98-107); Globulin 3.5 g/dL (1.3-4.6); Glucose 259 mg/dL (65-115); NT Pro B Type Natriuretic Pept 109 pg/mL (0-450); Osmolality Calculated 302 mOsm/kg (285-295); Potassium 4.6 mmol/L (3.5-5.1); Sodium 138 mmol/L (136-145); Total Bilirubin 0.3 mg/dL (0.15-1.2); Total Protein 7.4 g/dL (6.6-8.7)
--- NOTE | 2022-06-12 00:21 | ECG_ITS ---
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 Measurements Intervals [place] Rate: 74 P: 60 [place]: 202 QRS: -7 QRSD: 93 T: 64 QT: 365 QTc: 406 Interpretive Statements SINUS RHYTHM Compared to ECG 04/21/2021 17:28:42 No significant changes Electronically Signed On 06-12-2022 18:14:58 CDT by Elroy Ashford M.D. [id number]
[2022-06-12 00:24] LABS: Lipase 600 U/L (13-60)
--- NOTE | 2022-06-12 00:29 | CTR_ITS ---
PROCEDURE INFORMATION: Exam: CT Abdomen And Pelvis Without Contrast Exam date and time: 06/12/2022 12:43 AM Age: 81 years old Clinical indication: Abdominal pain; Generalized; Prior surgery; Surgery type: Gb. Appy; Patient HX: C/O diffuse abd pain with nausea TECHNIQUE: Imaging protocol: Computed tomography of the abdomen and pelvis without contrast. Radiation optimization: All CT scans at this facility use at least one of these dose optimization techniques: automated exposure control; mA and/or kV adjustment per patient size (includes targeted exams where dose is matched to clinical indication); or iterative reconstruction. COMPARISON: CR XR abdomen 1V* [id number] 06/07/2022 11:39 AM RADIATION DOSE METRICS: Total DLP (mGy-cm): 668.13 FINDINGS: Lungs: Emphysematous changes. Heart: Coronary artery atherosclerotic calcifications. Liver: Normal. No mass. Gallbladder and bile ducts: Cholecystectomy. Pancreas: Normal. No ductal dilation. Spleen: Normal. No splenomegaly. Adrenal glands: Normal. No mass. Kidneys and ureters: Several calcified punctate nonobstructing renal calyceal stones. Stomach and bowel: Suspected minimal edema about the transverse duodenum, series 3, image 40, with prominent fluid in the small bowel may reflect a duodenitis and enteritis. Diverticulosis without diverticulitis. Appendix: No evidence of appendicitis. Intraperitoneal space: Unremarkable. No free air. No significant fluid collection. Vasculature: Fusiform infrarenal abdominal aortic aneurysm measuring 3.2 cm without findings of rupture. Lymph nodes: Unremarkable. No enlarged lymph nodes. Urinary bladder: Unremarkable as visualized. Reproductive: Unremarkable as visualized. Bones/joints: Unremarkable. No acute fracture. Soft tissues: Unremarkable. CT/CT abdomen pelvis wo con [id number] IMPRESSION: 1. Suspected minimal edema about the transverse duodenum, series 3, image 40, with prominent fluid in the small bowel may reflect a duodenitis and enteritis. 2. Coronary artery atherosclerotic calcifications. 3. Emphysematous changes. 4. Cholecystectomy. 5. Several calcified punctate nonobstructing renal calyceal stones. 6. Diverticulosis without diverticulitis. 7. Fusiform infrarenal abdominal aortic aneurysm measuring 3.2 cm without findings of rupture.
[2022-06-12 01:17] LABS: Troponin 5 2HR 13.53 ng/L (0-15); Troponin 5 2HR Delta 0.53 ABS# (0-10)
[2022-06-12] MEDS: lactated ringers 1,000 ML 999 ML IV (01:28)
--- NOTE | 2022-06-12 01:53 | PM.HP ---
Providers/Chief Complaint Admitting Physician: Franky Lemus MD Primary Care Provider: Radha Ocampo, ORGANIZATIONAL DEVELOPMENT DIRECTOR-C Chief Complaint: cp, sob History of Present Illness Ervin Sandoval is a 81 year old male with a past medical history of CAD, COPD, diabetes, hypertension, hyperlipidemia, sleep apnea, tobacco abuse, noncompliant with his medications at times, his tells me he is not compliant with his insulin therapy, who presents [facility] for epigastric discomfort. Today he tells me that he started develop epigastric discomfort, pain just below his sternum, no nausea, no vomiting, he tells me that the pain got very severe after he had a strawberry milkshake from [employer], he also had a chili hotdog this evening. Denies any recent steroid use. Denies any alcohol use. He is status post cholecystectomy. No recent medication changes. No history of hypertriglyceridemia. He does report constipation for which he will eat a whole bag of prunes, his tells me that is hard for him not to eat. He denies any chest pain, shortness of breath, no diaphoresis, no nausea, no vomiting, no bloody or black stools Review of Systems Card: Denies: chest pain Resp: Denies: dyspnea GI: Reports: abdominal pain Medications/Allergies Home Medications Medication Instructions Recorded Confirmed Last Taken Type multivitamin with minerals 1 tab PO QPM 12/11/19 06/07/22 04/20/21 History (One-A-Day Maximum Formula) lancets (OneTouch UltraSoft #100 ea 04/30/20 06/07/22 Unknown Rx Lancets) aspirin 81 mg tablet,delayed 81 mg PO QPM 04/21/21 06/07/22 04/20/21 History release albuterol sulfate 90 mcg/actuation 2 puff inhalation Q6H PRN 08/14/21 06/07/22 Unknown Rx aerosol inhaler (ProAir HFA) shortness of breath or wheezing #25.8 grams blood sugar diagnostic #100 ea 01/15/22 06/07/22 Unknown Rx blood-glucose meter (OneTouch #1 ea 01/15/22 06/07/22 Unknown Rx Ultra2 Meter) cholecalciferol (vitamin D3) 1,250 50,000 unit PO .monthly #3 tabs 01/15/22 06/07/22 Unknown Rx mcg (50,000 unit) tablet lancets 33 gauge (OneTouch Delica #100 ea 01/15/22 06/07/22 Unknown Rx Plus Lancet) tramadol 50 mg tablet 75 mg PO BID PRN pain #270 tabs 01/15/22 06/07/22 Unknown Rx insulin detemir U-100 100 unit/mL 55 unit (0.55 mL) SUBCUT BEDTIME 04/17/22 06/07/22 Unknown Rx (3 mL) subcutaneous pen (Levemir #15 mL FlexTouch U-100 Insulin) atorvastatin 80 mg tablet 80 mg PO QPM #90 tabs 06/11/22 Unknown Rx clopidogrel 75 mg tablet 75 mg PO QAM #90 tabs 06/11/22 Unknown Rx glipizide 10 mg tablet 10 mg PO BID #180 tabs 06/11/22 Unknown Rx isosorbide mononitrate 60 mg 60 mg PO QAM #90 tabs 06/11/22 Unknown Rx tablet,extended release 24 hr levothyroxine 100 mcg tablet 100 mcg PO QAM #90 tabs 06/11/22 Unknown Rx lisinopril 20 mg tablet 20 mg PO QPM #90 tabs 06/11/22 Unknown Rx metformin 1,000 mg tablet 1,000 mg PO BID #180 tabs 06/11/22 Unknown Rx metoprolol succinate 25 mg 25 mg PO QAM #90 tabs 06/11/22 Unknown Rx tablet,extended release 24 hr sertraline 50 mg tablet 50 mg PO QAM #90 tabs 06/11/22 Unknown Rx Allergies Allergy/AdvReac Type Severity Reaction Status Date / Time donepezil [From Aricept] AdvReac Severe Vomiting Verified 06/07/22 11:40 PFSH Acute PFSH: Medical History Adult onset hypothyroidism CAD (coronary artery disease) Chronic pain syndrome COPD (chronic obstructive pulmonary disease) 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 Diabetes mellitus with hyperglycemia, with long-term current use of insulin Dyslipidemia Generalized anxiety disorder Hypertension Sleep apnea TIA (transient ischemic attack) Tobacco abuse Vitamin D deficiency Surgical History History of appendectomy History of cardiac catheterization with stents History of cholecystectomy History of lower leg fracture Social History Smoking and tobacco status: current every day smoker cigarettes Years cigarettes smoked: 70 [ Other cigarette details: Hx of 3PPD x 10 Year] Second hand smoke exposure: Yes Smoking risk assessment/counseling performed?: Yes Alcohol intake: never Desire information about alcohol rehabilitation?: No Counseling given: No Desire information about substance/drug rehabilitation?: No Counseling given: No Caregiver/support person: No Lives independently: Yes Household members: spouse Housing: House Marital status: service: Yes branch: [employer] Current occupational status: retired History of recent travel: No Current gender identity: Male Vitals/I&O/Wt Last Vital Signs Temp 98.3 F 06/12/22 01:00 Pulse 75 06/12/22 01:00 Resp 23 H 06/12/22 01:00 BP 116/82 06/12/22 01:00 Pulse Ox 95 06/12/22 01:00 O2 Del Method 06/12/22 01:00 Weight last 48 hrs Weight 94.347 kg Physical Exam Const: COMMON NORMALS: no acute distress and patient oriented x3 HENMT: COMMON NORMALS: normocephalic HEAD & SCALP: normocephalic Eye: COMMON NORMALS: Equal, round and reactive pupils present and EOMs intact bilaterally Neck/C-Spine: COMMON NORMALS: no JVD Resp: COMMON NORMALS: normal respiratory effort, No retractions, No use of accessory muscles and clear to auscultation bilaterally AUSCULTATION: clear to auscultation bilaterally Cardio: COMMON NORMALS: no JVD, regular rate, regular rhythm, S1 normal heart sound present and S2 normal heart sound present RATE: regular rate RHYTHM: regular rhythm HEART SOUNDS: S1 normal heart sound present and S2 normal heart sound present GI: COMMON NORMALS: Normal to inspection, nondistended, normoactive bowel sounds present and Soft to palpation PALPATION: Yes Soft to palpation and Yes Tenderness to palpation present (GI) (Epigastric discomfort, epigastric pain) Extremity: COMMON NORMALS: no pedal edema Neuro: COMMON NORMALS: patient oriented x3, CN's II-XII intact bilaterally, moves all extremities and no focal motor deficits Psych: COMMON NORMALS: mental status grossly normal Data : 06/11/22 23:00 06/11/22 23:00 A&P Assessment and plan (1) Acute pancreatitis: (2) Pulmonary hypertension: (3) Chronic respiratory failure with hypoxia: (4) Adult onset hypothyroidism: (5) Generalized anxiety disorder: (6) Dyslipidemia: (7) CAD (coronary artery disease): (8) Hypertension: Qualifiers: Hypertension type: primary hypertension Qualified Code(s): I10 - Essential (primary) hypertension (9) COPD (chronic obstructive pulmonary disease): Plan Acute pancreatitis, with duodenitis -Keep n.p.o. 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
[2022-06-12 02:38] LABS: NT Pro B Type Natriuretic Pept 113 pg/mL (0-450); Procalcitonin 0.04 ng/mL (0-0.5); Thyroid Stimulating Hormone 3.35 uIU/mL (0.27-4.20)
[2022-06-12 02:49] LABS: Chol HDL Ratio 4.72 mg/dL (1.0-5.00); Cholesterol 118 mg/dL (0-200); HDL Cholesterol 25 mg/dL (60-100); LDL Cholesterol Calculated 56 mg/dL (50-129); LDL HDL Ratio 2.24 RATIO (0.00-3.22); Magnesium 1.5 mg/dL (1.7-2.3); Phosphorus 2.6 mg/dL (2.5-4.5); Triglycerides 184 mg/dL (0-150)
--- NOTE | 2022-06-12 04:26 | ECG_ITS ---
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 Measurements Intervals [place] Rate: 63 P: [place]: QRS: -16 QRSD: 102 T: 20 QT: 400 QTc: 409 Interpretive Statements Normal sinus rhythm compared to ECG 06/12/2022 00:36:44 Myocardial infarct finding no longer present Electronically Signed On 06-12-2022 18:17:06 CDT by Elroy Ashford M.D. [email or web address] [email or web address] [facility] of delta regional medical centerUbersnapadams county regional medical [email or web address]/store/[id number]
[2022-06-12 04:47] LABS: Add Urine Microscopic? NO; Charge for UA Resulting for Rev
[2022-06-12 04:49] LABS: Bilirubin Urine Neg (Negative); Blood Urine Neg (Negative); Glucose Urine UA 4+ (Normal); Ketones Urine Negative (Negative); Leukocyte Esterase Urine Negative (Negative); Nitrate Urine Negative (Negative); Protein Urine Neg (Negative); Specific Gravity, Urine 1.005 (1.005-1.030); Urine Appearance Clear (CLEAR); Urine Color Yellow (Yellow); Urobilinogen Urine Neg (Negative); pH Urine 7 (5-7)
[2022-06-12 05:02] LABS: Basophils % 0.5 %; Eosinophils # 0.2 10^3/uL (0.0-0.8); Eosinophils % 2.6 %; Hematocrit 39.3 % (42.0-52.0); Hemoglobin 13.1 g/dL (11.7-16.6); Lymphocytes % 24.1 %; Mean Corpuscular HGB Conc 33.3 g/dL (30.0-36.0); Mean Corpuscular Hemoglobin 30.2 pg (28.0-34.0); Mean Corpuscular Volume 90.6 fl (80-94); Monocytes # 0.6 10^3/uL (0.2-0.9); Monocytes % 6.8 %; Neutrophils # 5.57 10^3/uL (1.8-7.7); Neutrophils % 65.8 %; Nucleated Red Blood Cells % 0 %; Platelet Count 192 10^3/cmm (130-400); Red Blood Count 4.34 10^6/uL (4.1-5.3); Red Cell Distribution Width 13.6 % (12.1-15.1); White Blood Count 8.5 10^3/uL (4.0-10.0)
[2022-06-12 05:21] LABS: Lactic Sepsis W/Reflex 1.2 mmol/L (0.5-2.2)
[2022-06-12 05:25] LABS: Troponin 5 6HR 12.15 ng/L (0-15)
[2022-06-12 05:26] LABS: Estmated Average Glucose 183
[2022-06-12 05:29] LABS: Anion Gap 13.7 (5-19); Blood Urea Nitrogen 30 mg/dL (8-23); Calcium 9.7 mg/dL (8.5-10.5); Carbon Dioxide 28 mmol/L (22-29); Chloride 101 mmol/L (98-107); Glucose 224 mg/dL (65-115); Osmolality Calculated 299 mOsm/kg (285-295); Potassium 4.7 mmol/L (3.5-5.1); Sodium 138 mmol/L (136-145); Troponin 5 6HR Delta -0.85 ng/L (0-12)
[2022-06-12] MEDS: pantoprazole 40 mg SDV IVP (06:34)
[2022-06-12] MEDS: sodium chloride 0.9% 1,000 ML 100 ML IV (06:35)
[2022-06-12] MEDS: enoxaparin 40 mg/0.4 mL Syringe SUBCUT (06:35)
[2022-06-12] MEDS: clopidogrel 75 mg Tablet PO (06:36)
[2022-06-12] MEDS: levothyroxine 100 mcg Tablet PO (06:36)
[2022-06-12] MEDS: metoprolol succinate ER (24 HR) 25 mg Tablet PO (06:36)
[2022-06-12] MEDS: isosorbide mononitrate ER 60 mg Tablet PO (06:37)
[2022-06-12] MEDS: insulin lispro 100 unit/1 mL SUBCUT ×2 (08:41→12:04)
--- NOTE | 2022-06-12 09:41 | PC.NURSE ---
Dr. Lynn in to see patient, discussed plan of care to increase diet to mechanical soft, evaluate toleration, possible discharge pending toleration to diet. Patient denies pain, nausea, or vomiting at this time.
--- NOTE | 2022-06-12 10:53 | PC.NURSE ---
Patient pulled IV catheter out, tip intact, Dr. Lynn notified. tolerated breakfast without any Nausea, vomiting, or abdominal pain.
[2022-06-12 12:25] LABS: Glucose Point of Care 269 mg/dL (70-110)
--- NOTE | 2022-06-12 13:01 | PM.DCS ---
Discharge Providers Date of Admission: 06/12/22 01:12 Date of Discharge: June 12, 2022 Attending Provider at Admission: Franky Lemus MD Attending Provider at Discharge: Joy Lynn MD Primary Care Provider: HANNAH Ward Diagnoses at Discharge Discharge Diagnosis (1) Acute pancreatitis: Status: Acute (2) Pulmonary hypertension: Status: Acute (3) Chronic respiratory failure with hypoxia: Status: Acute (4) Adult onset hypothyroidism: Status: Chronic (5) Generalized anxiety disorder: Status: Chronic (6) Dyslipidemia: Status: Chronic (7) CAD (coronary artery disease): Status: Chronic (8) Hypertension: Status: Chronic Qualifiers: Hypertension type: primary hypertension Qualified Code(s): I10 - Essential (primary) hypertension (9) COPD (chronic obstructive pulmonary disease): Status: Chronic Reason for Visit Reason for Visit: cp, pamela Hospital Course Hospital Course Ervin Sandoval is a 81 year old male with a past medical history of CAD, COPD, diabetes, hypertension, hyperlipidemia, sleep apnea, tobacco abuse, noncompliant with his medications at times, including his insulin. Presented to the emergency room complaining of epigastric discomfort. It started just after he had a strawberry milkshake and some chili hotdog. He was admitted to the hospital due to concern for acute pancreatitis given elevated lipase. CT of the abdomen and pelvis however notes a normal pancreas. There is evidence of duodenitis. Patient was admitted and placed on conservative management with IV fluids, pain management. He has not had any nausea vomiting or diarrhea. This morning he states that he is 100% better. He denies any pain. He has tolerated a mechanical soft diet this morning. He is eager to return home. I suspect given quick recovery of his symptoms and abnormal pancreas on abdominal imaging, his symptoms are related to acute duodenitis versus transient gastroenteritis. He is back to his baseline state of health. Since he is otherwise clinically stable, he is okay to discharge home per his request. No new medications have been added or changed during this admission. Physical Exam Narrative: General: No acute distress, AO x3 HEENT: PERRLA, pupils bilaterally equal and reactive, pallors not present Chest: Normal vesicular breath sounds, no added sounds, equal good air entry bilaterally CVS: S1-S2 regular, no murmurs, no tachycardia, no gallops, no rubs Abdomen: Soft, nontender, no organomegaly, bowel sounds present Neuro: No focal deficits, no facial deformity, AO x3, power 5/5 in all limbs Discharge Data Studies Completed and Pending Completed Studies During Hospitalization Category Date Time Status CT abdomen pelvis wo con [id number] Stat Cat Scan 06/12/22 00:29 Completed XR chest 1V portable [id number] Stat Exams 06/11/22 22:21 Completed Radiology Impressions Chest X-Ray 06/11/22 22:21 IMPRESSION: Bilateral diffuse largely peripheral interstitial fibrotic changes similar to prior exam with left peripheral to lower lobe suspected pleuroparenchymal scarring. Abdomen/Pelvis CT 06/12/22 00:29 IMPRESSION: 1. Suspected minimal edema about the transverse duodenum, series 3, image 40, with prominent fluid in the small bowel may reflect a duodenitis and enteritis. 2. Coronary artery atherosclerotic calcifications. 3. Emphysematous changes. 4. Cholecystectomy. 5. Several calcified punctate nonobstructing renal calyceal stones. 6. Diverticulosis without diverticulitis. 7. Fusiform infrarenal abdominal aortic aneurysm measuring 3.2 cm without findings of rupture. Laboratory Results WBC 8.5 10^3/uL (4.0-10.0) 06/12/22 04:35 RBC 4.34 10^6/uL (4.1-5.3) 06/12/22 04:35 Hgb 13.1 g/dL (11.7-16.6) 06/12/22 04:35 Hct 39.3 % (42.0-52.0) L 06/12/22 04:35 MCV 90.6 fl (80-94) 06/12/22 04:35 MCH 30.2 pg (28.0-34.0) 06/12/22 04:35 MCHC 33.3 g/dL (30.0-36.0) 06/12/22 04:35 RDW 13.6 % (12.1-15.1) 06/12/22 04:35 Plt Count 192 10^3/cmm (130-400) 06/12/22 04:35 MPV 10.0 fL (7.4-10.4) 06/12/22 04:35 Neut % (Auto) 65.8 % 06/12/22 04:35 Lymph % (Auto) 24.1 % 06/12/22 04:35 Angelina % (Auto) 6.8 % 06/12/22 04:35 Eos % (Auto) 2.6 % 06/12/22 04:35 Baso % (Auto) 0.5 % 06/12/22 04:35 Neut # (Auto) 5.57 10^3/uL (1.8-7.7) 06/12/22 04:35 Lymph # (Auto) 2.0 10^3/uL (0.8-4.8) 06/12/22 04:35 Angelina # (Auto) 0.6 10^3/uL (0.2-0.9) 06/12/22 04:35 Eos # (Auto) 0.2 10^3/uL (0.0-0.8) 06/12/22 04:35 Baso # (Auto) 0.0 10^3/uL (0.0-0.1) 06/12/22 04:35 Nucleated RBC % (auto) 0 % 06/12/22 04:35 Nucleated RBCs # 0.0 /100WBC 06/12/22 04:35 PT 13.00 SECONDS (12.1-14.9) 06/11/22 23:00 INR 0.95 (0.8-1.2) 06/11/22 23:00 Sodium 138 mmol/L (136-145) 06/12/22 04:35 Potassium 4.7 mmol/L (3.5-5.1) 06/12/22 04:35 Chloride 101 mmol/L (98-107) 06/12/22 04:35 Carbon Dioxide 28 mmol/L (22-29) 06/12/22 04:35 Anion Gap 13.7 (5-19) 06/12/22 04:35 BUN 30 mg/dL (8-23) H 06/12/22 04:35 Creatinine 1.2 mg/dL (0.7-1.2) 06/12/22 04:35 GFR Calculation Not Reportable 06/12/22 04:35 Glucose 224 mg/dL (65-115) H 06/12/22 04:35 POC Glucose 269 mg/dL (70-110) H 06/12/22 11:22 Estimat Average Glucose 183 06/12/22 04:35 Hemoglobin A1c 8.0 % (4.0-6.0) H 06/12/22 04:35 Calculated Osmolality 299 mOsm/kg (285-295) H 06/12/22 04:35 Lactic Acid 1.2 mmol/L (0.5-2.2) 06/12/22 04:35 Calcium 9.7 mg/dL (8.5-10.5) 06/12/22 04:35 Phosphorus 2.6 mg/dL (2.5-4.5) 06/12/22 00:34 Magnesium 1.5 mg/dL (1.7-2.3) L 06/12/22 00:34 Total Bilirubin 0.3 mg/dL (0.15-1.2) 06/11/22 23:00 AST 10 U/L (0-40) 06/11/22 23:00 ALT 9 U/L (0-41) 06/11/22 23:00 Alkaline Phosphatase 125 U/L (40-130) 06/11/22 23:00 Troponin T Baseline 13 ng/L (0-15) 06/11/22 23:00 Troponin T 120 Minute 13.53 ng/L (0-15) 06/12/22 00:34 Delta Troponin T 0.53 ABS# (0-10) 06/12/22 00:34 Troponin T Hi Sens 6Hr 12.15 ng/L (0-15) 06/12/22 04:35 Troponin T Hi Sens 6Hr Delta -0.85 ng/L (0-12) L 06/12/22 04:35 NT-Pro-B Natriuret Pep 113 pg/mL (0-450) 06/12/22 00:34 Total Protein 7.4 g/dL (6.6-8.7) 06/11/22 23:00 Albumin 3.9 g/dL (3.5-5.2) 06/11/22 23:00 Globulin 3.5 g/dL (1.3-4.6) 06/11/22 23:00 Triglycerides 184 mg/dL (0-150) H 06/12/22 00:34 Cholesterol 118 mg/dL (0-200) 06/12/22 00:34 LDL Cholesterol, Calc 56 mg/dL (50-129) 06/12/22 00:34 HDL Cholesterol 25 mg/dL (60-100) L 06/12/22 00:34 LDL/HDL Ratio 2.24 RATIO (0.00-3.22) 06/12/22 00:34 Cholesterol/HDL Ratio 4.72 mg/dL (1.0-5.00) 06/12/22 00:34 Lipase 600 U/L (13-60) H 06/11/22 23:00 Procalcitonin 0.04 ng/mL (0-0.5) 06/12/22 00:34 TSH 3.35 uIU/mL (0.27-4.20) 06/12/22 00:34 Urine Color Yellow (Yellow) 06/12/22 04:41 Urine Appearance Clear (CLEAR) 06/12/22 04:41 Urine pH 7 (5-7) 06/12/22 04:41 Ur Specific [place] 1.005 (1.005-1.030) 06/12/22 04:41 Urine Protein Neg (Negative) 06/12/22 04:41 Urine Glucose (UA) 4+ (Normal) H 06/12/22 04:41 Urine Ketones Negative (Negative) 06/12/22 04:41 Urine Blood Neg (Negative) 06/12/22 04:41 Urine Nitrate Negative (Negative) 06/12/22 04:41 Urine Bilirubin Neg (Negative) 06/12/22 04:41 Urine Urobilinogen Neg mg/dL (Negative) 06/12/22 04:41 Ur Leukocyte Esterase Negative (Negative) 06/12/22 04:41 Vitals Last Vital Signs Temp 97.6 F 06/12/22 12:00 Pulse 66 06/12/22 12:00 Resp 18 06/12/22 12:00 BP 118/55 06/12/22 12:00 Pulse Ox 95 06/12/22 12:00 O2 Del Method 06/12/22 12:00 Discharge Plan Discharge Patient Disposition: Home Condition: Stable Prescriptions: Continued (DME) lancets [OneTouch UltraSoft Lancets] Misc See Rx Instructions .ROUTE .MEDSUPPLY Qty: 100 3RF Rx Instructions: daily multivitamin with minerals [One-A-Day Maximum Formula] Tablet 1 tab PO QPM cholecalciferol (vitamin D3) 1,250 mcg (50,000 unit) tablet 50,000 unit PO .monthly Qty: 3 1RF Rx Instructions: TAKES THE FIRST TUESDAY OF EACH MONTH tramadol 50 mg tablet 75 mg PO BID PRN (Reason: pain) Qty: 270 1RF (DME) blood sugar diagnostic Strip See Rx Instructions .ROUTE .MEDSUPPLY Qty: 100 3RF Rx Instructions: daily (DME) blood-glucose meter [ePub DirectTouch Ultra2 Meter] Kit See Rx Instructions .Route Qty: 1 0RF Rx Instructions: use daily (DME) lancets [OneTouch Delica Plus Lancet] 33 gauge misc See Rx Instructions .Route Qty: 100 3RF Rx Instructions: use 1 day Levemir FlexTouch U-100 Insuln 100 unit/mL (3 mL) insulin pen 55 unit SUBCUT BEDTIME Qty: 15 2RF albuterol sulfate [ProAir HFA] 90 mcg/actuation HFA aerosol inhaler 2 puff inhalation Q6H PRN (Reason: shortness of breath or wheezing) Qty: 25.8 0RF lisinopril 20 mg tablet 20 mg PO QPM Qty: 90 1RF Rx Instructions: blood pressure levothyroxine 100 mcg tablet 100 mcg PO QAM Qty: 90 1RF glipizide 10 mg tablet 10 mg PO BID Qty: 180 1RF Rx Instructions: for blood sugar sertraline 50 mg tablet 50 mg PO QAM Qty: 90 1RF Rx Instructions: moods metoprolol succinate 25 mg tablet extended release 24 hr 25 mg PO QAM Qty: 90 1RF Rx Instructions: heart clopidogrel 75 mg tablet 75 mg PO QAM Qty: 90 1RF metformin 1,000 mg tablet 1,000 mg PO BID Qty: 180 1RF Rx Instructions: blood sugar atorvastatin 80 mg tablet 80 mg PO QPM Qty: 90 1RF Rx Instructions: for cholesterol isosorbide mononitrate 60 mg tablet extended release 24 hr 60 mg PO QAM Qty: 90 1RF Rx Instructions: for heart aspirin 81 mg Tablet,Delayed Release (Dr/Ec) 81 mg PO QPM Discharge Orders: Discharge Order (Routine); Ordered 06/12/22 Ordered By: Joy Lynn Referrals: Radha Ocampo, [facility] [Primary Care Provider] - (Please call Tuesday to schedule a follow up appointment.) Discharge Diet: Advance as tolerated and GI Soft Discharge Activity: Resume usual activity Patient Instructions: Pancreatitis (ED), Pulmonary Arterial Hypertension (GEN), Opioid Safety Discharge Attestations Time Spent in Discharge Care*: less than 30 min Quality Metrics Clinical Quality Measures [ No reported AMI, CVA or VTE this stay] Coding Level of Care Code Acute Chg FW DC note Diagnoses Acute pancreatitis K85.90 Pulmonary hypertension I27.20 Chronic respiratory failure with hypoxia J96.11 Adult onset hypothyroidism E03.8 Generalized anxiety disorder F41.1 Dyslipidemia E78.5 CAD (coronary artery disease) I25.10 Hypertension I10 Hypertension type: primary hypertension COPD (chronic obstructive pulmonary disease) J44.9
== END 2022-06-12 13:26 | disposition home or self-care (01) ==
LOC: ER 06-12 01:13 → MEDSURG 06-12 08:25
PROVIDERS: Admitting Provider Family Medicine; Emergency Provider Emergency Medicine; PCP Nurse Practitioner; Visit Provider Student in an Organized Health Care Education/Training Program
DX: K85.90 Acute pancreatitis without necrosis or infection, unspecified (principal); I27.20 Pulmonary hypertension, unspecified; J96.11 Chronic respiratory failure with hypoxia; E03.8 Other specified hypothyroidism; F41.1 Generalized anxiety disorder; E78.5 Hyperlipidemia, unspecified; I25.10 Atherosclerotic heart disease of native coronary artery without angina pectoris; I10 Essential (primary) hypertension; J44.9 Chronic obstructive pulmonary disease, unspecified; E11.9 Type 2 diabetes mellitus without complications; G47.30 Sleep apnea, unspecified; Z91.14 Patient's other noncompliance with medication regimen; Z79.4 Long term (current) use of insulin; E55.9 Vitamin D deficiency, unspecified; Z86.73 Personal history of transient ischemic attack (TIA), and cerebral infarction without residual deficits
CPT/HCPCS: 36415; 36416; 71045; 74176; 80048; 80053; 80061; 81003; 82962; 83036; 83605; 83690; 83735; 83880; 84100; 84145; 84443; 84484; 85025; 85610; 93005; 94664; 96360; 96372; 99285; C9113; G0378; J1650; J1815; J7030

== ENCOUNTER 2022-08-31 06:00 | Outpatient (RCR) | payer OTHER, SELFPAY | END 2022-09-18 23:59 | disposition home or self-care (01) | LOC: TPT 06:00 | PROVIDERS: PCP Nurse Practitioner; Visit Provider Family Medicine | DX: R26.9 Unspecified abnormalities of gait and mobility (principal) | CPT/HCPCS: 97163 ==

== ENCOUNTER 2022-09-16 12:23 | Outpatient (CLI) | payer OTHER, SELFPAY ==
--- NOTE | 2022-09-16 12:39 | CT_ITS ---
WS: [id number] CTA THORACIC TECHNIQUE: Contrast enhanced CTA of the thoracic aorta with coronal and sagittal reformatted images a nd maximum intensity projection (MIP) images. CLINICAL INFORMATION: EVALUATE THORACIC ANEURYSM COMPARISON: CT chest 01/22/2020 and 12/04/2019 DLP: 1285.[address] scans at [facility] use at least one of these dose optimization techniques: automated e xposure control; mA and/or kV adjustment per patient size (includes targeted exams where dose is matc hed to clinical indication); or iterative reconstruction. FINDINGS: Aneurysmal ascending thoracic aorta measuring 3.7 CM. This is unchanged compared to previou s. Mild to moderate aortic atheromatous disease. Normal caliber descending thoracic aorta. Proximal m ain pulmonary arteries are normal. Advanced chronic emphysematous changes. Interstitial thickening with scattered reticular opacities castillo spicious for interstitial lung disease with possible honeycombing. Recommend correlation with pulmona ry function tests Noncalcified spiculated nodule LEFT upper lobe measuring 18 x 12 mm has a suspicious appearance. This appears new since 2019 and recommend further evaluation with PET/CT. Neoplasm is not excluded. Additional noncalcified nodular opacity RIGHT upper lobe laterally measuring 6.5 mm. Recommend [address] follow-up. No mediastinal or hilar lymphadenopathy. No axillary lymphadenopathy. Hypertrophic changes thoracic spine. Mild thoracic curve.Adrenal glands are normal. Cholecystectomy clips. Splenic artery calcifica tion. CT/CT angio chest [id number] IMPRESSION: 1. Aneurysmal ascending thoracic aorta measuring 3.7 cm unchanged. 2. Moderate aortic atheromatous disease. Normal caliber descending thoracic ao rta. 3. Advanced chronic emphysematous changes. Interstitial thickening with scatte red reticular opacities suspicious for interstitial lung disease with possible honeycombing. Recommend correlation with pulmonary function tests. 4. Noncalcified spiculated nodule LEFT upper lobe measuring 18 x 12 mm has a s uspicious appearance. This appears new since 2019 and recommend further evaluat ion with PET/CT. Neoplasm is not excluded. 5. Additional noncalcified nodular opacity RIGHT upper lobe laterally measurin g 6.5 mm. Recommend [address] follow-up. 6. Prior cholecystectomy.
[2022-09-16] MEDS: iohexol 350 mg/mL 500 mL Btl (per mL) IV (12:53)
[2022-09-16 13:21] LABS: Blood Urea Nitrogen 21 mg/dL (8-23)
== END 2022-09-16 12:24 | disposition home or self-care (01) ==
LOC: RAD 12:25
PROVIDERS: Urology; PCP Nurse Practitioner; Visit Provider Family Medicine
DX: J84.10 Pulmonary fibrosis, unspecified (principal); I71.21 Aneurysm of the ascending aorta, without rupture; Z90.49 Acquired absence of other specified parts of digestive tract; R91.8 Other nonspecific abnormal finding of lung field
CPT/HCPCS: 71275; 82565; 84520; Q9967

== ENCOUNTER 2022-09-19 06:00 | Outpatient (RCR) | payer OTHER, SELFPAY | END 2022-10-19 23:59 | disposition home or self-care (01) | LOC: TPT 06:00 | PROVIDERS: PCP Nurse Practitioner; Visit Provider Family Medicine | DX: R26.9 Unspecified abnormalities of gait and mobility (principal) | CPT/HCPCS: 97110 ==

== ENCOUNTER 2022-10-20 06:00 | Outpatient (RCR) | payer OTHER, SELFPAY | END 2022-11-16 23:59 | disposition home or self-care (01) | LOC: TPT 06:00 | PROVIDERS: PCP Nurse Practitioner; Visit Provider Family Medicine | DX: R26.9 Unspecified abnormalities of gait and mobility (principal) | CPT/HCPCS: 97110; 97116; 97164 ==

== ENCOUNTER 2022-11-17 06:00 | Outpatient (RCR) | payer OTHER, SELFPAY | END 2022-12-14 23:59 | disposition home or self-care (01) | LOC: TPT 06:00 | PROVIDERS: PCP Nurse Practitioner; Visit Provider Family Medicine | DX: R26.9 Unspecified abnormalities of gait and mobility (principal) | CPT/HCPCS: 97110 ==

== ENCOUNTER → 2022-12-10 09:01 | Outpatient (BNVA) | payer MEDICARE, SELFPAY | PROVIDERS: PCP Nurse Practitioner; Visit Provider Family Medicine | DX: J44.9 Chronic obstructive pulmonary disease, unspecified (principal); E11.65 Type 2 diabetes mellitus with hyperglycemia; Z79.4 Long term (current) use of insulin; E55.9 Vitamin D deficiency, unspecified; G47.30 Sleep apnea, unspecified; E03.8 Other specified hypothyroidism; G45.9 Transient cerebral ischemic attack, unspecified; I10 Essential (primary) hypertension; I25.10 Atherosclerotic heart disease of native coronary artery without angina pectoris; G89.4 Chronic pain syndrome; F41.1 Generalized anxiety disorder; Z12.11 Encounter for screening for malignant neoplasm of colon | CPT/HCPCS: 80053; 80061; 82607; 82652; 83036; 84443 ==

== ENCOUNTER 2023-03-17 13:23 | Outpatient (CLI) | payer OTHER, SELFPAY ==
--- NOTE | 2023-03-17 13:57 | USCV_ITS ---
Ervin Sandoval Age: 82 Gender: M : 1940 Exam Date: 03/17/2023 14:48 Ordering Phys: Margo Ledesma MD Technologist: SARTHAK Exam Location: [facility] – [place] Indication: EVAL FOR AORTIC STENOSIS BP: 136 / 80 HR: 82 Rhythm: Sinus Technical Quality: Adequate MEASUREMENTS (Male / Female) Normal Values 2D ECHO LVOT Diameter 2.0 cm LV Ejection Fraction MOD 2C 55.1 % LV Ejection Fraction 2C AL 54.3 % LA Diameter 2.9 cm LA Width 2.8 cm LA Height 4.0 cm RA Width 2.6 cm RA Height 3.9 cm Aorta at Sinotubular Diameter 2.3 cm IVC Diameter 1.6 cm M-MODE Aortic Annulus Diameter 3.4 cm LA Ao Ratio MM 0.7 DOPPLER AV Peak Velocity 101.3 cm/s LVOT Peak Velocity 91.0 cm/s AV Area Cont Eq vti 3.0 cm squared AV Area Cont Eq pk 2.8 cm squared MV Peak Velocity 101.0 cm/s MV Area PHT 3.7 cm squared Mitral E to A Ratio 0.7 MV E' Velocity 30.5 cm/s Mitral E to MV E' Ratio 7.8 Mitral E to LV E' Lateral Ratio 8.9 Mitral E to LV E' Septal Ratio 7.0 TR Peak Velocity 159.5 cm/s TR Peak Gradient 10.2 mmHg TR Mean Velocity 122.7 cm/s TR Mean Gradient 6.5 mmHg TR Velocity Time Integral 47.5 cm TV Peak E Velocity 39.0 cm/s Right Atrial Pressure 3.0 mmHg Pulmonary Artery Systolic Pressu 13.2 mmHg PV Peak Velocity 82.0 cm/s RV Acceleration Time 0.1 s RV Ejection Time 0.2 s RV AcT/ET 0.5 FINDINGS Left Ventricle Left ventricle is normal in size. LV systolic function is mildly reduced with EF of 40-45%. Mild global hypokinesis. Grade 1 diastolic dysfunction Right Ventricle Normal in size and function Right Atrium Normal in size Left Atrium Normal in size Mitral Valve Mitral valve is thickened.Trace mitral regurgitation. Aortic Valve Structurally normal aortic valve. No significant stenosis. Trace aortic regurgitation. Tricuspid Valve Mild tricuspid regurgitation. Insufficient TR jet to calculate RVSP. Pulmonic Valve Not well visualized Pericardium Normal Aorta Normal in size IVC Appears to be normal CONCLUSIONS LV systolic function is mildly reduced with EF of 40 to 45%. Grade 1 diastolic dysfunction. Mild trace mitral regurgitation Trace aortic regurgitation Mild tricuspid regurgitation Compared to prior echocardiogram from 2017, LV systolic function has decreased and EF is 40-45%. Oneil Redmond MD (Electronically Signed) Final Date: 22 March 2023 13:30 S
== END 2023-03-17 13:24 | disposition home or self-care (01) ==
LOC: RAD 13:23
PROVIDERS: PCP Family Medicine; Visit Provider Family Medicine
DX: I50.30 Unspecified diastolic (congestive) heart failure (principal); I34.0 Nonrheumatic mitral (valve) insufficiency; I07.1 Rheumatic tricuspid insufficiency
CPT/HCPCS: 93306

== ENCOUNTER → 2023-03-25 10:15 | Outpatient (BNVA) | payer OTHER, SELFPAY | PROVIDERS: PCP Family Medicine; Visit Provider Internal Medicine Cardiovascular Disease | DX: J44.9 Chronic obstructive pulmonary disease, unspecified (principal); E03.8 Other specified hypothyroidism; I67.2 Cerebral atherosclerosis; E11.65 Type 2 diabetes mellitus with hyperglycemia; Z79.4 Long term (current) use of insulin; J84.10 Pulmonary fibrosis, unspecified; G47.30 Sleep apnea, unspecified; Z72.0 Tobacco use; G89.4 Chronic pain syndrome; I25.10 Atherosclerotic heart disease of native coronary artery without angina pectoris; J96.11 Chronic respiratory failure with hypoxia; I10 Essential (primary) hypertension; I27.20 Pulmonary hypertension, unspecified | CPT/HCPCS: 99215 ==

== ENCOUNTER → 2023-04-27 10:58 | Outpatient (BNVA) | payer OTHER, SELFPAY | PROVIDERS: PCP Family Medicine; Referring Provider Family Medicine; Visit Provider Internal Medicine Pulmonary Disease | DX: J44.9 Chronic obstructive pulmonary disease, unspecified (principal); J96.11 Chronic respiratory failure with hypoxia; F17.210 Nicotine dependence, cigarettes, uncomplicated | CPT/HCPCS: 99214 ==